=== PATIENT | female | born 1960 | race Caucasian/White ===

== ENCOUNTER 2017-08-17 11:08 | Inpatient (IN) | payer MEDICARE ==
[~2017-08-17] VITALS: Ht 157.5 cm; Wt 73.0 kg
[~2017-08-17 11:08] MED LIST: ALLO300T PO; AMLO10TA2 PO; AMLO5TAB4 PO; BUDE10.22 INH; CHOL500050 PO; CITA20TA5 PO; CLIN300C8 PO; FURO-92 PO; FURO40TA6 PO; HYDR25TA11 PO; IBUP-1223 PO; MACI10TA PO; OXYC1TAB8 PO; POTA20TA91 PO; POTA25TA4 PO; SPIR25TA PO; TADA20TA33 PO; TRAZ100T15 PO; [UNRECOGNIZED DRUG - OTHER] PO
[2017-08-17] MEDS ORDERED: SODIUM CHLORIDE FLUSH 10ML SYR IVF ONE (11:30)
[2017-08-17 11:34] LABS: BASOPHILS # (AUTO) 0.03 x10^3/uL (0-0.1); BASOPHILS % (AUTO) 0 % (0-1); EOSINOPHILS # (AUTO) 0.08 x10^3/uL (0-0.4); EOSINOPHILS % (AUTO) 1 % (1-7); LYMPHOCYTES % (AUTO) 11 % (22-44); MD NO; MEAN CORPUSCULAR HEMOGLOBIN 31.3 pg (27.0-34.8); MEAN CORPUSCULAR HGB CONC 33.7 g/dL (32.4-35.8); MEAN CORPUSCULAR VOLUME 93.1 fL (80-100); MEAN PLATELET VOLUME 7.5 fL (7.4-10.4); MONOCYTES # (AUTO) 1.07 x10^3/uL (0.2-0.8); MONOCYTES % (AUTO) 7 % (2-9); NEUTROPHILS # (AUTO) 12.08 x10^3/uL (1.8-6.8); NEUTROPHILS % (AUTO) 81 % (42-75); PLATELET COUNT 296 x10^3/uL (130-400); RED BLOOD COUNT 5.28 x10^6/uL (3.82-5.3); RED CELL DISTRIBUTION WIDTH 12.5 % (9.6-15.2)
[2017-08-17 11:45] LABS: ALANINE AMINOTRANSFERASE 18 U/L (12-78); ALBUMIN 3.6 g/dL (3.4-5.0); ANION GAP 8 mmol/L (5-15); CALCIUM 9.8 mg/dL (8.5-10.1); CHLORIDE 110 mmol/L (98-107); CREATININE 0.97 mg/dL (0.55-1.02)
[2017-08-17 11:50] LABS: ALKALINE PHOSPHATASE 112 U/L (45-117); TOTAL PROTEIN 8.5 g/dL (6.4-8.2); TROPONIN I < 0.015 ng/mL (0.000-0.045)
[2017-08-17] MEDS ORDERED: CEFTRIAXONE PMX 1GM/50ML 50 ML ONE (13:30)
[2017-08-17] MEDS ORDERED: ALBUTEROL/IPRATROPIUM 2.5MG/0.5MG, 3 ML NPPB SCH (13:30)
[2017-08-17] MEDS ORDERED: CEFTRIAXONE PMX 1GM/50ML 50 ML IVPB ONE (13:30)
[2017-08-17] MEDS ORDERED: SODIUM CHLORIDE 0.9% 1,000ML IVBOLUS ONE (13:30)
[2017-08-17] MEDS ORDERED: AZITHROMYCIN 500 MG in SODIUM CHLORIDE 0.9% 250 ML IVPB ONE (13:30)
[2017-08-17] MEDS ORDERED: TADA20TA33 PO (14:35)
[2017-08-17] MEDS ORDERED: FLUT1BLS INH (14:37)
[2017-08-17] MEDS ORDERED: MACI10TA PO (14:37)
[2017-08-17] MEDS ORDERED: SILD50TA PO (14:39)
[2017-08-17 15:23] LABS: RAPID INFLUENZA A Negative (Negative); RAPID INFLUENZA B Negative (Negative)
[2017-08-17] MEDS ORDERED: ONDANSETRON 2MG/ML, 2ML IVPush PRN (18:00)
[2017-08-17] MEDS ORDERED: ONDANSETRON ODT 4 MG PO PRN (18:00)
[2017-08-17] MEDS: ENOXAPARIN 40 MG/0.4 ML SQ SCH (18:00)
[2017-08-17] MEDS ORDERED: LABETALOL 5MG/ML, 20ML IVPush PRN (18:00)
[2017-08-17] MEDS ORDERED: POLYETHYLENE GLYCOL 17 GM PACKET PO PRN (18:00)
[2017-08-17] MEDS: SODIUM CHLORIDE 0.9% 1,000 ML IV SCH (18:35)
[2017-08-17] MEDS: CEFTRIAXONE 1,000 MG in DEXTROSE 5% 50 ML IV SCH (18:36)
[2017-08-17 20:00] VITALS: BP 99/57
[2017-08-17] MEDS ORDERED: TEMPLATE NON-FORMULARY MED. (Macitentan** (Opsumit**) 10 MG) HOMEMEDPO SCH (21:00)
[2017-08-17] MEDS ORDERED: SILDENAFIL 20 MG TABLET PO SCH (21:00)
[2017-08-17] MEDS: TRAZODONE 100MG TABLET PO SCH (23:11)
[2017-08-17] MEDS: SILDENAFIL 20 MG TABLET PO SCH (23:11)
[2017-08-17] MEDS: DOXYCYCLINE 100MG TABLET PO SCH (23:12)
[2017-08-17] MEDS: NICOTINE 14MG/24 HR PATCH.TD24 TD SCH (23:12)
[2017-08-18 02:45] VITALS: BP 96/66
[2017-08-18 05:58] LABS: CHLORIDE 115 mmol/L (98-107)
[2017-08-18 06:10] LABS: BASOPHILS # (AUTO) 0.06 x10^3/uL (0-0.1); BASOPHILS % (AUTO) 1 % (0-1); EOSINOPHILS % (AUTO) 0 % (1-7); LYMPHOCYTES % (AUTO) 11 % (22-44); MD NO; MEAN CORPUSCULAR HGB CONC 33.2 g/dL (32.4-35.8); MEAN CORPUSCULAR VOLUME 93.3 fL (80-100); MEAN PLATELET VOLUME 7.9 fL (7.4-10.4); MONOCYTES # (AUTO) 0.84 x10^3/uL (0.2-0.8); MONOCYTES % (AUTO) 8 % (2-9); NEUTROPHILS # (AUTO) 9.13 x10^3/uL (1.8-6.8); NEUTROPHILS % (AUTO) 81 % (42-75); PLATELET COUNT 255 x10^3/uL (130-400); RED BLOOD COUNT 4.66 x10^6/uL (3.82-5.3); RED CELL DISTRIBUTION WIDTH 12.6 % (9.6-15.2)
[2017-08-18 06:11] LABS: ALANINE AMINOTRANSFERASE 16 U/L (12-78); ALKALINE PHOSPHATASE 83 U/L (45-117); ANION GAP 10 mmol/L (5-15); BILIRUBIN,TOTAL 0.6 mg/dL (0.2-1.0); CALCIUM 9.7 mg/dL (8.5-10.1); CREATININE 0.72 mg/dL (0.55-1.02); TOTAL PROTEIN 7.4 g/dL (6.4-8.2)
[2017-08-18] MEDS: ALBUTEROL/IPRATROPIUM 2.5MG/0.5MG, 3 ML HHN SCH ×4 (07:00→19:25)
[2017-08-18] MEDS ORDERED: TEMPLATE NON-FORMULARY MED. (Macitentan** (Opsumit**) 10 MG) HOMEMEDPO SCH (09:00)
[2017-08-18 09:05] VITALS: BP 90/58
[2017-08-18] MEDS: SILDENAFIL 20 MG TABLET PO SCH ×3 (09:11→21:00)
[2017-08-18] MEDS: SENNA/DOCUSATE TABLET PO SCH (09:12)
[2017-08-18] MEDS: DOXYCYCLINE 100MG TABLET PO SCH ×2 (09:13→21:06)
[2017-08-18] MEDS: IBUPROFEN 200 MG TABLET PO PRN ×2 (10:11→19:11)
[2017-08-18] MEDS: GUAIFENESIN/DM 200-20MG, 10ML UDC PO PRN ×2 (10:12→18:11)
[2017-08-18] MEDS: SODIUM CHLORIDE 0.9% 1,000 ML IV SCH (11:38)
[2017-08-18] MEDS ORDERED: CEFTRIAXONE PMX 1GM/50ML 50 ML IV SCH (13:00)
[2017-08-18] MEDS: FLUTICASONE/VILANTEROL 200-25MCG/INH INH SCH (13:22)
[2017-08-18] MEDS: CEFTRIAXONE 1,000 MG in DEXTROSE 5% 50 ML IV SCH (13:34)
[2017-08-18 13:40] VITALS: BP 90/55
[2017-08-18] MEDS: ENOXAPARIN 40 MG/0.4 ML SQ SCH (16:46)
[2017-08-18 19:37] VITALS: BP 111/71
[2017-08-18] MEDS: TEMPLATE NON-FORMULARY MED. (Macitentan** (Opsumit**) 10 MG) HOMEMEDPO SCH (21:00)
[2017-08-18] MEDS: TRAZODONE 100MG TABLET PO SCH (21:06)
[2017-08-18] MEDS: NICOTINE 14MG/24 HR PATCH.TD24 TD SCH (21:06)
[2017-08-19] MEDS: SODIUM CHLORIDE 0.9% 1,000 ML IV SCH (00:16)
[2017-08-19 02:44] VITALS: BP 122/80
[2017-08-19] MEDS: IBUPROFEN 200 MG TABLET PO PRN ×2 (02:44→11:31)
[2017-08-19] MEDS: ALBUTEROL/IPRATROPIUM 2.5MG/0.5MG, 3 ML HHN SCH ×4 (08:23→20:00)
[2017-08-19 08:46] VITALS: BP 122/81
[2017-08-19] MEDS: methylPREDNISolone SOD SUCC 125 MG/2 ML IVPush SCH ×3 (08:48→20:45)
[2017-08-19] MEDS: DOXYCYCLINE 100MG TABLET PO SCH ×2 (08:48→20:42)
[2017-08-19] MEDS: FLUTICASONE/VILANTEROL 200-25MCG/INH INH SCH (08:48)
[2017-08-19] MEDS: SILDENAFIL 20 MG TABLET PO SCH ×3 (08:49→20:43)
[2017-08-19] MEDS: SENNA/DOCUSATE TABLET PO SCH (08:49)
[2017-08-19] MEDS: TEMPLATE NON-FORMULARY MED. (Macitentan** (Opsumit**) 10 MG) HOMEMEDPO SCH ×2 (08:49→09:00)
[2017-08-19 08:50] LABS: BASOPHILS # (AUTO) 0.03 x10^3/uL (0-0.1); BASOPHILS % (AUTO) 0 % (0-1); EOSINOPHILS # (AUTO) 0.01 x10^3/uL (0-0.4); EOSINOPHILS % (AUTO) 0 % (1-7); LYMPHOCYTES % (AUTO) 14 % (22-44); MD NO; MEAN CORPUSCULAR HEMOGLOBIN 31.1 pg (27.0-34.8); MEAN CORPUSCULAR HGB CONC 33.1 g/dL (32.4-35.8); MEAN CORPUSCULAR VOLUME 93.9 fL (80-100); MEAN PLATELET VOLUME 7.6 fL (7.4-10.4); MONOCYTES # (AUTO) 0.48 x10^3/uL (0.2-0.8); MONOCYTES % (AUTO) 5 % (2-9); NEUTROPHILS # (AUTO) 7.26 x10^3/uL (1.8-6.8); NEUTROPHILS % (AUTO) 80 % (42-75); PLATELET COUNT 243 x10^3/uL (130-400); RED BLOOD COUNT 4.28 x10^6/uL (3.82-5.3); RED CELL DISTRIBUTION WIDTH 12.6 % (9.6-15.2)
[2017-08-19 09:02] LABS: ALBUMIN 2.9 g/dL (3.4-5.0); ANION GAP 7 mmol/L (5-15); CALCIUM 9.7 mg/dL (8.5-10.1); CHLORIDE 118 mmol/L (98-107); CREATININE 0.83 mg/dL (0.55-1.02)
[2017-08-19] MEDS: CEFTRIAXONE 1,000 MG in DEXTROSE 5% 50 ML IV SCH (13:50)
[2017-08-19] MEDS: GUAIFENESIN/DM 200-20MG, 10ML UDC PO PRN (14:31)
[2017-08-19 15:48] VITALS: BP 125/86
[2017-08-19] MEDS: ENOXAPARIN 40 MG/0.4 ML SQ SCH (16:33)
[2017-08-19] MEDS ORDERED: BUTALB/APAP/CAFFEINE 50MG/325MG/40MG PO ONE (18:30)
[2017-08-19 20:39] VITALS: BP 119/78
[2017-08-19] MEDS: TRAZODONE 100MG TABLET PO SCH (20:42)
[2017-08-19] MEDS: NICOTINE 14MG/24 HR PATCH.TD24 TD SCH (20:42)
[2017-08-19] MEDS ORDERED: TEMPLATE NON-FORMULARY MED. (Macitentan** (Opsumit**) 10 MG) HOMEMEDPO SCH (21:00)
[2017-08-19] MEDS ORDERED: ALUMINUM/MAG/SIMETHICONE 30 ML UDC PO PRN (21:30)
[2017-08-19] MEDS ORDERED: SUMATRIPTAN 50 MG TABLET PO ONE (21:30)
[2017-08-20] MEDS: methylPREDNISolone SOD SUCC 125 MG/2 ML IVPush SCH ×4 (02:28→22:10)
[2017-08-20] MEDS: GUAIFENESIN/DM 200-20MG, 10ML UDC PO PRN ×2 (02:28→15:51)
[2017-08-20 02:50] VITALS: BP 109/70
[2017-08-20] MEDS: ALBUTEROL/IPRATROPIUM 2.5MG/0.5MG, 3 ML HHN SCH ×4 (07:00→19:20)
[2017-08-20 07:33] LABS: BASOPHILS # (AUTO) 0.01 x10^3/uL (0-0.1); BASOPHILS % (AUTO) 0 % (0-1); EOSINOPHILS % (AUTO) 0 % (1-7); LYMPHOCYTES # (AUTO) 0.52 x10^3/uL (1-3.4); LYMPHOCYTES % (AUTO) 6 % (22-44); MD NO; MEAN CORPUSCULAR HEMOGLOBIN 31.3 pg (27.0-34.8); MEAN CORPUSCULAR HGB CONC 33.1 g/dL (32.4-35.8); MEAN CORPUSCULAR VOLUME 94.6 fL (80-100); MEAN PLATELET VOLUME 7.8 fL (7.4-10.4); MONOCYTES # (AUTO) 0.08 x10^3/uL (0.2-0.8); MONOCYTES % (AUTO) 1 % (2-9); NEUTROPHILS # (AUTO) 8.58 x10^3/uL (1.8-6.8); NEUTROPHILS % (AUTO) 93 % (42-75); PLATELET COUNT 263 x10^3/uL (130-400); RED BLOOD COUNT 4.34 x10^6/uL (3.82-5.3); RED CELL DISTRIBUTION WIDTH 12.9 % (9.6-15.2)
[2017-08-20 07:46] LABS: ALBUMIN 2.9 g/dL (3.4-5.0); ANION GAP 8 mmol/L (5-15); CALCIUM 9.8 mg/dL (8.5-10.1); CHLORIDE 115 mmol/L (98-107); CREATININE 0.78 mg/dL (0.55-1.02)
[2017-08-20] MEDS: SENNA/DOCUSATE TABLET PO SCH (09:00)
[2017-08-20 09:02] VITALS: BP 109/72
[2017-08-20] MEDS: FLUTICASONE/VILANTEROL 200-25MCG/INH INH SCH (09:19)
[2017-08-20] MEDS: DOXYCYCLINE 100MG TABLET PO SCH ×2 (09:20→20:49)
[2017-08-20] MEDS: SILDENAFIL 20 MG TABLET PO SCH ×3 (09:20→20:49)
[2017-08-20 12:28] VITALS: BP 108/71
[2017-08-20] MEDS ORDERED: SUMATRIPTAN 50 MG TABLET PO ONE (13:00)
[2017-08-20] MEDS: CEFTRIAXONE 1,000 MG in DEXTROSE 5% 50 ML IV SCH (13:33)
[2017-08-20 14:53] VITALS: BP 128/76
[2017-08-20] MEDS: ENOXAPARIN 40 MG/0.4 ML SQ SCH (17:10)
[2017-08-20 18:27] VITALS: BP 111/66
[2017-08-20] MEDS: IBUPROFEN 200 MG TABLET PO PRN (18:37)
[2017-08-20] MEDS: NICOTINE 14MG/24 HR PATCH.TD24 TD SCH (20:49)
[2017-08-20] MEDS: TRAZODONE 100MG TABLET PO SCH (20:49)
[2017-08-20] MEDS ORDERED: TEMPLATE NON-FORMULARY MED. (Macitentan** (Opsumit**) 10 MG) HOMEMEDPO SCH (21:00)
[2017-08-20] MEDS ORDERED: DIPHENHYDRAMINE 50 MG/ML, 1ML IVPush ONE (21:00)
[2017-08-20] MEDS ORDERED: METOCLOPRAMIDE 5 MG/ML, 2ML IVPush ONE (21:00)
[2017-08-21 02:25] VITALS: BP 118/75
[2017-08-21] MEDS: methylPREDNISolone SOD SUCC 125 MG/2 ML IVPush SCH (04:30)
[2017-08-21] MEDS: IBUPROFEN 200 MG TABLET PO PRN (04:36)
[2017-08-21 07:18] LABS: MEAN CORPUSCULAR HEMOGLOBIN 31.2 pg (27.0-34.8); MEAN CORPUSCULAR HGB CONC 33.1 g/dL (32.4-35.8); MEAN CORPUSCULAR VOLUME 94.2 fL (80-100); MEAN PLATELET VOLUME 7.6 fL (7.4-10.4); PLATELET COUNT 279 x10^3/uL (130-400); RED CELL DISTRIBUTION WIDTH 12.5 % (9.6-15.2)
[2017-08-21 07:29] LABS: CALCIUM 10.1 mg/dL (8.5-10.1); CHLORIDE 113 mmol/L (98-107)
[2017-08-21 07:34] LABS: ALANINE AMINOTRANSFERASE 39 U/L (12-78); ALBUMIN 2.8 g/dL (3.4-5.0); ALKALINE PHOSPHATASE 74 U/L (45-117); ANION GAP 8 mmol/L (5-15); BILIRUBIN,TOTAL 0.4 mg/dL (0.2-1.0); CREATININE 0.77 mg/dL (0.55-1.02); TOTAL PROTEIN 6.6 g/dL (6.4-8.2)
[2017-08-21] MEDS: FLUTICASONE/VILANTEROL 200-25MCG/INH INH SCH (08:15)
[2017-08-21] MEDS: DOXYCYCLINE 100MG TABLET PO SCH (08:15)
[2017-08-21] MEDS: SENNA/DOCUSATE TABLET PO SCH (08:16)
[2017-08-21] MEDS: ALBUTEROL/IPRATROPIUM 2.5MG/0.5MG, 3 ML HHN SCH (08:24)
[2017-08-21 08:26] LABS: BASOPHILS % (AUTO) 0 % (0-1); EOSINOPHILS % (AUTO) 0 % (1-7); LYMPHOCYTES # (AUTO) 0.49 x10^3/uL (1-3.4); LYMPHOCYTES % (AUTO) 4 % (22-44); MD SCAN; MONOCYTES # (AUTO) 0.09 x10^3/uL (0.2-0.8); MONOCYTES % (AUTO) 1 % (2-9); NEUTROPHILS # (AUTO) 12.59 x10^3/uL (1.8-6.8); NEUTROPHILS % (AUTO) 96 % (42-75)
[2017-08-21 08:47] VITALS: BP 120/75
[2017-08-21] MEDS ORDERED: DIPHENHYDRAMINE 50 MG/ML, 1ML IVPush ONE (09:00)
[2017-08-21] MEDS ORDERED: METOCLOPRAMIDE 5 MG/ML, 2ML IVPush ONE (09:00)
[2017-08-21] MEDS: SILDENAFIL 20 MG TABLET PO SCH (10:44)
[2017-08-21] MEDS: CEFTRIAXONE 1,000 MG in DEXTROSE 5% 50 ML IV SCH (10:45)
[2017-08-21] MEDS: GUAIFENESIN/DM 200-20MG, 10ML UDC PO PRN (10:45)
[2017-08-21] MEDS ORDERED: SILD20TA PO (12:41)
[2017-08-21] MEDS ORDERED: DOXY100T PO (12:47)
[2017-08-21] MEDS ORDERED: PRED20TA PO (12:47)
[2017-08-21] MEDS ORDERED: CEFD300C37 PO (12:47)
[2017-08-21] MEDS ORDERED: ALBU8.5H8 INH (12:50)
[2017-08-21 15:25] VITALS: BP 118/74
[2017-08-22] MEDS ORDERED: ALBUTEROL/IPRATROPIUM 2.5MG/0.5MG, 3 ML HHN PRN (11:00)
== END 2017-08-21 15:58 | disposition home or self-care (01) | DRG 189 ==
LOC: ED 13:23 → EDIP 15:11 → 3NE 16:58
PROVIDERS: ADMIT Hospitalist; ATTEND Hospitalist
DX: J96.01 Acute respiratory failure with hypoxia (principal); E43 Unspecified severe protein-calorie malnutrition; I11.0 Hypertensive heart disease with heart failure; J15.9 Unspecified bacterial pneumonia; I27.29 Other secondary pulmonary hypertension; I50.9 Heart failure, unspecified; J44.1 Chronic obstructive pulmonary disease with (acute) exacerbation; J44.0 Chronic obstructive pulmonary disease with (acute) lower respiratory infection; I27.81 Cor pulmonale (chronic); Z68.29 Body mass index [BMI] 29.0-29.9, adult; F32.9 Major depressive disorder, single episode, unspecified; G43.909 Migraine, unspecified, not intractable, without status migrainosus; Z79.899 Other long term (current) drug therapy; Z82.49 Family history of ischemic heart disease and other diseases of the circulatory system; Z80.0 Family history of malignant neoplasm of digestive organs; Z87.891 Personal history of nicotine dependence
CPT/HCPCS: 36415; 70450; 71045; 80048; 80053; 82040; 83605; 83735; 83880; 84484; 85025; 87040; 87400; 93005; 93306; 94640; 99285; J0456; J0696; J7620; J1200; J2765; J2930; J7030; J7050; J7512

== ENCOUNTER → 2017-08-27 | Outpatient (CLI) | payer MEDICARE ==
[~2017-08-27] MED LIST changes: +ALBU8.5H8 INH; +CEFD300C37 PO; +DOXY100T PO; +FLUT1BLS INH; +PRED20TA PO; +SILD20TA PO; +SILD50TA PO
== END | disposition home or self-care (01) ==
LOC: CFH 15:45
PROVIDERS: ATTEND Registered Nurse
DX: J43.9 Emphysema, unspecified (principal); J18.9 Pneumonia, unspecified organism; I27.0 Primary pulmonary hypertension
CPT/HCPCS: 71250

== ENCOUNTER 2018-07-30 18:58 | Emergency (ER) | payer MEDICARE ==
[~2018-07-30] VITALS: Ht 157.5 cm; Wt 69.6 kg
[~2018-07-30 18:58] MED LIST changes: -AMLO10TA2 PO; +AMLO10TA6 PO; -CITA20TA5 PO; +CITA20TA6 PO; +TRAZ-137 PO; -TRAZ100T15 PO
[2018-07-30 19:52] LABS: BASOPHILS # (AUTO) 0.02 x10^3/uL (0-0.1); BASOPHILS % (AUTO) 0 % (0-1); EOSINOPHILS # (AUTO) 0.14 x10^3/uL (0-0.4); EOSINOPHILS % (AUTO) 3 % (1-7); LYMPHOCYTES # (AUTO) 1.38 x10^3/uL (1-3.4); LYMPHOCYTES % (AUTO) 25 % (22-44); MD NO; MEAN CORPUSCULAR HEMOGLOBIN 31.9 pg (27.0-34.8); MEAN CORPUSCULAR HGB CONC 34.3 g/dL (32.4-35.8); MEAN CORPUSCULAR VOLUME 93.2 fL (80-100); MEAN PLATELET VOLUME 7.1 fL (7.4-10.4); MONOCYTES # (AUTO) 0.58 x10^3/uL (0.2-0.8); MONOCYTES % (AUTO) 11 % (2-9); NEUTROPHILS # (AUTO) 3.41 x10^3/uL (1.8-6.8); NEUTROPHILS % (AUTO) 62 % (42-75); PLATELET COUNT 248 x10^3/uL (130-400); RED BLOOD COUNT 4.07 x10^6/uL (3.82-5.3); RED CELL DISTRIBUTION WIDTH 12.7 % (9.6-15.2)
[2018-07-30 19:57] LABS: ALANINE AMINOTRANSFERASE 20 U/L (12-78); ALBUMIN 3.4 g/dL (3.4-5.0); ANION GAP 7 mmol/L (5-15); CALCIUM 9.8 mg/dL (8.5-10.1); CHLORIDE 112 mmol/L (98-107); CREATININE 1.22 mg/dL (0.55-1.02)
[2018-07-30 20:00] LABS: ALKALINE PHOSPHATASE 82 U/L (45-117); BILIRUBIN,TOTAL 0.4 mg/dL (0.2-1.0); TOTAL PROTEIN 7.2 g/dL (6.4-8.2)
[2018-07-30] MEDS ORDERED: MORPHINE SULFATE 4 MG/ML, 1ML IVPush PRN (20:00)
[2018-07-30] MEDS ORDERED: ONDANSETRON 2MG/ML, 2ML IVPush ONE (20:00)
[2018-07-30] MEDS ORDERED: KETOROLAC 30 MG/1 ML IVPush ONE (20:30)
[2018-07-30] MEDS ORDERED: ONDANSETRON 2MG/ML, 2ML ONE (20:31)
[2018-07-30] MEDS ORDERED: KETOROLAC 30 MG/1 ML ONE (20:31)
[2018-07-30 20:46] LABS: MICROSCOPIC INDICATED
[2018-07-30 21:03] LABS: CULTURE INDICATED? NO
[2018-07-30] MEDS ORDERED: OMNIPAQUE 350 MG/ML, 100ML BOTTLE ONE (21:14)
[2018-07-30] MEDS ORDERED: OXYcodone/APAP 5/325MG TABLET PO ONE (21:30)
[2018-07-30] MEDS ORDERED: OXYcodone/APAP 5/325MG TABLET ONE (21:35)
[2018-07-30 21:49] VITALS: BP 100/42
== END 2018-07-30 21:51 | disposition home or self-care (01) ==
LOC: ED 20:34
DX: R10.31 Right lower quadrant pain (principal); R10.32 Left lower quadrant pain; I11.0 Hypertensive heart disease with heart failure; I50.9 Heart failure, unspecified; J44.9 Chronic obstructive pulmonary disease, unspecified; Z88.6 Allergy status to analgesic agent
CPT/HCPCS: 36415; 74177; 80053; 81001; 83690; 85025; 96374; 96375; 99284; J1885; J2405; Q9967

== ENCOUNTER → 2018-08-16 | Outpatient (CLI) | payer MEDICARE ==
[2018-08-16 12:33] LABS: HCT (SEDRATE) 41.1 % (34.6-47.8)
[2018-08-16 13:07] LABS: ANION GAP 4 mmol/L (5-15); CALCIUM 9.7 mg/dL (8.5-10.1); CHLORIDE 112 mmol/L (98-107)
== END | disposition home or self-care (01) ==
LOC: CFH 10:27
PROVIDERS: ATTEND Internal Medicine Cardiovascular Disease
DX: I27.0 Primary pulmonary hypertension (principal)
CPT/HCPCS: 36415; 80048; 82784; 83516; 83880; 85651; 86140; 86255

== ENCOUNTER → 2018-10-02 | Outpatient (CLI) | payer MEDICARE ==
[~2018-10-02] MED LIST changes: -AMLO10TA6 PO; +AMLO10TA8 PO
== END | disposition home or self-care (01) ==
LOC: CFH 12:50
PROVIDERS: ATTEND Internal Medicine Cardiovascular Disease
DX: I35.8 Other nonrheumatic aortic valve disorders (principal); I37.1 Nonrheumatic pulmonary valve insufficiency; R06.02 Shortness of breath
CPT/HCPCS: 93306

== ENCOUNTER 2020-01-02 17:13 | Inpatient (IN) | payer MEDICARE ==
[~2020-01-02] VITALS: Ht 157.5 cm; Wt 74.5 kg
[~2020-01-02 17:13] MED LIST changes: +HYDR-826 PO; -HYDR25TA11 PO; -TRAZ-137 PO; +TRAZ-175 PO
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
[2020-01-02 18:28] LABS: BASOPHILS # (AUTO) 0.02 x10^3/uL (0-0.1); BASOPHILS % (AUTO) 1 % (0-1); EOSINOPHILS # (AUTO) 0.15 x10^3/uL (0-0.4); EOSINOPHILS % (AUTO) 3 % (1-7); LYMPHOCYTES # (AUTO) 1.05 x10^3/uL (1-3.4); LYMPHOCYTES % (AUTO) 23 % (22-44); MD NO; MEAN CORPUSCULAR HEMOGLOBIN 32.6 pg (27.0-34.8); MEAN CORPUSCULAR HGB CONC 33.9 g/dL (32.4-35.8); MEAN CORPUSCULAR VOLUME 96.2 fL (80-100); MONOCYTES # (AUTO) 0.44 x10^3/uL (0.2-0.8); MONOCYTES % (AUTO) 10 % (2-9); NEUTROPHILS # (AUTO) 2.97 x10^3/uL (1.8-6.8); NEUTROPHILS % (AUTO) 64 % (42-75); PLATELET COUNT 219 x10^3/uL (130-400); RED BLOOD COUNT 4.05 x10^6/uL (3.82-5.3); RED CELL DISTRIBUTION WIDTH 12.8 % (9.6-15.2)
[2020-01-02 18:36] LABS: ALBUMIN 3.4 g/dL (3.4-5.0); ANION GAP 8 mmol/L (5-15); CALCIUM 9.3 mg/dL (8.5-10.1); CHLORIDE 115 mmol/L (98-107); CREATININE 1.03 mg/dL (0.55-1.02)
[2020-01-02 18:40] LABS: TROPONIN I < 0.015 ng/mL (0.000-0.045)
--- NOTE | 2020-01-02 19:26 | NUR ---
AMBULATED PT. PT AMBULATES WITH STEADY GAIT AND WITHOUT ASSISTANCE.
[2020-01-02] MEDS ORDERED: ASPIRIN 325 MG TABLET ONE (19:50)
[2020-01-02] MEDS ORDERED: ASPIRIN 325 MG TABLET PO ONE (20:00)
[2020-01-02] MEDS ORDERED: LETAIRIS (20:35)
[2020-01-02] MEDS ORDERED: TADALAFIL (20:35)
[2020-01-02] MEDS ORDERED: CITALOPRAM (20:35)
[2020-01-02 20:49] VITALS: BP 134/87
[2020-01-02] MEDS ORDERED: morphine SULFATE 10 MG/ML, 1ML IV PRN (23:00)
[2020-01-02] MEDS ORDERED: ONDANSETRON 2MG/ML, 2ML IVPush PRN (23:00)
[2020-01-02] MEDS ORDERED: ACETAMINOPHEN 325 MG TABLET PO PRN (23:00)
[2020-01-02] MEDS ORDERED: TRAZODONE 100MG TABLET PO SCH (23:00)
[2020-01-03] MEDS: NICOTINE 14MG/24 HR PATCH.TD24 TD SCH ×2 (00:08→22:02)
[2020-01-03] MEDS: TRAZODONE 100MG TABLET PO SCH ×2 (00:08→22:02)
[2020-01-03 00:17] VITALS: BP 117/74
[2020-01-03 00:33] LABS: TROPONIN I < 0.015 ng/mL (0.000-0.045)
[2020-01-03] MEDS: ALBUTEROL SULFATE 2.5 MG/3 ML NPPB SCH ×4 (03:00→19:43)
[2020-01-03 06:01] LABS: BASOPHILS # (AUTO) 0.02 x10^3/uL (0-0.1); BASOPHILS % (AUTO) 1 % (0-1); EOSINOPHILS # (AUTO) 0.15 x10^3/uL (0-0.4); EOSINOPHILS % (AUTO) 4 % (1-7); LYMPHOCYTES # (AUTO) 1.21 x10^3/uL (1-3.4); LYMPHOCYTES % (AUTO) 29 % (22-44); MD NO; MEAN CORPUSCULAR HEMOGLOBIN 32.2 pg (27.0-34.8); MEAN CORPUSCULAR HGB CONC 33.1 g/dL (32.4-35.8); MEAN CORPUSCULAR VOLUME 97.2 fL (80-100); MEAN PLATELET VOLUME 7.3 fL (7.4-10.4); MONOCYTES # (AUTO) 0.45 x10^3/uL (0.2-0.8); MONOCYTES % (AUTO) 11 % (2-9); NEUTROPHILS # (AUTO) 2.39 x10^3/uL (1.8-6.8); NEUTROPHILS % (AUTO) 57 % (42-75); PLATELET COUNT 210 x10^3/uL (130-400); RED BLOOD COUNT 4.26 x10^6/uL (3.82-5.3); RED CELL DISTRIBUTION WIDTH 12.6 % (9.6-15.2)
[2020-01-03 06:08] LABS: ANION GAP 6 mmol/L (5-15); CALCIUM 9.5 mg/dL (8.5-10.1); CHLORIDE 115 mmol/L (98-107); CHOLESTEROL, TOTAL 193 mg/dL (140-239); CREATININE 0.93 mg/dL (0.55-1.02); TRIGLYCERIDES 335 mg/dL (50-200); VLDL CHOLESTEROL 67 mg/dL (0-25)
[2020-01-03 06:12] LABS: CHOL/HDL RATIO 4.7; HDL CHOL % 21 % (28-40); HDL CHOLESTEROL (DIRECT) 41 mg/dL (40-60); LDL CHOLESTEROL,CALCULATED 85 mg/dL (54-169); LDL/HDL RATIO 2.1 (0.5-3.0); TROPONIN I < 0.015 ng/mL (0.000-0.045)
[2020-01-03] MEDS: BUDESONIDE 0.5 MG/2 ML INHA NPPB SCH ×2 (08:43→19:43)
[2020-01-03] MEDS ORDERED: SPIRONOLACTONE 25 MG TABLET PO SCH (09:00)
[2020-01-03] MEDS: FUROSEMIDE 40 MG TABLET PO SCH ×2 (09:00→22:01)
[2020-01-03 09:06] VITALS: BP 119/74
[2020-01-03] MEDS ORDERED: CITA20TA6 PO (14:45)
[2020-01-03] MEDS ORDERED: TADA20TA43 PO (14:45)
[2020-01-03] MEDS ORDERED: AMBR10TA3 PO (14:45)
[2020-01-03] MEDS ORDERED: OMEP-110 PO (14:45)
[2020-01-03 16:58] VITALS: BP 126/78
[2020-01-03] MEDS: AMBRISENTAN 10 MG HOMEMEDPO SCH (18:07)
[2020-01-03] MEDS: ENOXAPARIN 40 MG/0.4 ML SQ SCH (18:08)
[2020-01-03] MEDS: CITALOPRAM 20 MG TABLET PO SCH (18:08)
[2020-01-03] MEDS: OMEPRAZOLE 20 MG CAPSULE.DR PO SCH (18:08)
[2020-01-03 18:36] VITALS: BP 118/76
[2020-01-04 00:10] VITALS: BP 129/68
[2020-01-04] MEDS: ALBUTEROL SULFATE 2.5 MG/3 ML NPPB SCH ×3 (02:15→14:30)
[2020-01-04] MEDS: OMEPRAZOLE 20 MG CAPSULE.DR PO SCH (05:59)
[2020-01-04 06:49] VITALS: BP 95/57
[2020-01-04] MEDS: BUDESONIDE 0.5 MG/2 ML INHA NPPB SCH (07:40)
[2020-01-04] MEDS ORDERED: REGADENOSON 0.4 MG/5 ML SYRINGE ONE (08:05)
[2020-01-04] MEDS: CITALOPRAM 20 MG TABLET PO SCH (08:12)
[2020-01-04] MEDS: FUROSEMIDE 40 MG TABLET PO SCH (08:12)
[2020-01-04] MEDS: AMBRISENTAN 10 MG HOMEMEDPO SCH (08:12)
[2020-01-04] MEDS ORDERED: SPIRONOLACTONE 50 MG TABLET PO SCH (09:00)
[2020-01-04 12:15] VITALS: BP 106/63
[2020-01-04] MEDS ORDERED: GEMF600T8 PO (15:11)
[2020-01-04] MEDS: ENOXAPARIN 40 MG/0.4 ML SQ SCH (15:31)
[2020-01-04] MEDS ORDERED: GEMFIBROZIL 600 MG TABLET PO SCH (21:00)
== END 2020-01-04 16:45 | disposition home or self-care (01) | DRG 189 ==
LOC: ED 19:40 → EDIP 19:44 → ED 20:04 → 5SO 20:35 → DCLOUNGE 01-04 16:38
PROVIDERS: ADMIT Family Medicine; ATTEND Family Medicine
DX: J96.21 Acute and chronic respiratory failure with hypoxia (principal); I50.32 Chronic diastolic (congestive) heart failure; J44.1 Chronic obstructive pulmonary disease with (acute) exacerbation; E78.1 Pure hyperglyceridemia; F17.210 Nicotine dependence, cigarettes, uncomplicated; G47.33 Obstructive sleep apnea (adult) (pediatric); F51.04 Psychophysiologic insomnia; I11.0 Hypertensive heart disease with heart failure; K21.9 Gastro-esophageal reflux disease without esophagitis; I27.29 Other secondary pulmonary hypertension; R32 Unspecified urinary incontinence; Z80.1 Family history of malignant neoplasm of trachea, bronchus and lung; Z83.3 Family history of diabetes mellitus; Z91.14 Patient's other noncompliance with medication regimen; Z91.19 Patient's noncompliance with other medical treatment and regimen; Z99.81 Dependence on supplemental oxygen; Z88.5 Allergy status to narcotic agent; Z88.6 Allergy status to analgesic agent; Z79.899 Other long term (current) drug therapy
CPT/HCPCS: 36415; 71045; 78452; 80048; 80061; 82040; 83880; 84443; 84484; 85025; 85379; 93005; 93017; 93306; 93880; 94640; 96372; 99285; G0378; J1650; J2785; J7613; J7626; A9502; J7512

== ENCOUNTER → 2021-02-22 | Outpatient (CLI) | payer MEDICARE ==
[~2021-02-22] MED LIST changes: +AMBR10TA3 PO; +AMLO-211 PO; -AMLO10TA8 PO; +CITALOPRAM; -CLIN300C8 PO; +CLIN300C9 PO; +GEMF-31 PO; +LETAIRIS; +OMEP-110 PO; +TADA20TA43 PO; +TADALAFIL
[2021-02-22 11:22] LABS: BASOPHILS % (AUTO) 1 % (0-1); EOSINOPHILS % (AUTO) 2 % (1-7); LYMPHOCYTES % (AUTO) 24 % (22-44); MEAN CORPUSCULAR HEMOGLOBIN 33.3 pg (27.0-34.8); MEAN CORPUSCULAR HGB CONC 33.9 g/dL (32.4-35.8); MONOCYTES % (AUTO) 8 % (2-9); NEUTROPHILS % (AUTO) 66 % (42-75); PLATELET COUNT 199 x10^3/uL (130-400); RED BLOOD COUNT 4.66 x10^6/uL (3.82-5.3); RED CELL DISTRIBUTION WIDTH 12.7 % (9.6-15.2)
[2021-02-22 11:34] LABS: CALCIUM 9.9 mg/dL (8.5-10.1); CREATININE 0.77 mg/dL (0.55-1.02)
[2021-02-22 11:37] LABS: INTERNATIONAL NORMALIZED RATIO 1.06 (0.93-1.1); PROTHROMBIN TIME 11.3 Seconds (9.6-11.5)
[2021-02-22 11:53] LABS: ANION GAP 3 mmol/L (5-15); CHLORIDE 110 mmol/L (98-107)
== END | disposition home or self-care (01) ==
LOC: LAB 10:45
PROVIDERS: ATTEND Internal Medicine
DX: G47.33 Obstructive sleep apnea (adult) (pediatric) (principal); G47.30 Sleep apnea, unspecified; I50.32 Chronic diastolic (congestive) heart failure; I36.1 Nonrheumatic tricuspid (valve) insufficiency; I27.29 Other secondary pulmonary hypertension; J44.1 Chronic obstructive pulmonary disease with (acute) exacerbation; J44.9 Chronic obstructive pulmonary disease, unspecified; I11.0 Hypertensive heart disease with heart failure; I27.20 Pulmonary hypertension, unspecified
CPT/HCPCS: 36415; 80048; 83880; 85025; 85610

== ENCOUNTER 2021-03-17 09:46 | Day surgery (SDC) | payer MEDICARE ==
[~2021-03-17] VITALS: Ht 157.5 cm; Wt 70.5 kg
[2021-03-17] MEDS ORDERED: DIPHENHYDRAMINE 50 MG/ML, 1ML ONE (09:57)
[2021-03-17] MEDS ORDERED: TRAZ-175 PO (10:26)
[2021-03-17] MEDS ORDERED: COLE1TAB2 PO (10:26)
[2021-03-17] MEDS ORDERED: DIPHENHYDRAMINE 50 MG/ML, 1ML IVPush ONE (10:30)
[2021-03-17] MEDS ORDERED: SODIUM CHLORIDE 0.9% 1,000 ML IV SCH (10:30)
[2021-03-17 10:58] LABS: BASOPHILS % (AUTO) 1 % (0-1); EOSINOPHILS % (AUTO) 2 % (1-7); LYMPHOCYTES % (AUTO) 19 % (22-44); MEAN CORPUSCULAR HGB CONC 34.7 g/dL (32.4-35.8); MEAN PLATELET VOLUME 7.1 fL (7.4-10.4); MONOCYTES % (AUTO) 9 % (2-9); NEUTROPHILS % (AUTO) 69 % (42-75); PLATELET COUNT 206 x10^3/uL (130-400); RED BLOOD COUNT 4.53 x10^6/uL (3.82-5.3); RED CELL DISTRIBUTION WIDTH 12.7 % (9.6-15.2)
[2021-03-17 11:03] LABS: ANION GAP 6 mmol/L (5-15); CALCIUM 9.9 mg/dL (8.5-10.1); CHLORIDE 113 mmol/L (98-107); CREATININE 0.82 mg/dL (0.55-1.02)
[2021-03-17] MEDS ORDERED: LIDOCAINE 2%, 20ML ONE (11:40)
[2021-03-17] MEDS ORDERED: FENTANYL PF 100 MCG/2ML ONE (11:40)
[2021-03-17] MEDS ORDERED: MIDAZOLAM 1 MG/ML, 2ML ONE (11:40)
== END 2021-03-17 14:34 | disposition home or self-care (01) ==
LOC: CACL 09:46
PROVIDERS: ATTEND Internal Medicine Cardiovascular Disease
DX: I27.20 Pulmonary hypertension, unspecified (principal); G47.30 Sleep apnea, unspecified; F17.210 Nicotine dependence, cigarettes, uncomplicated; Z79.899 Other long term (current) drug therapy; Z88.5 Allergy status to narcotic agent
CPT/HCPCS: 36415; 80048; 85025; 93451; 99156; C1769; C1894; J1200; J2250; J3010

== ENCOUNTER 2021-04-25 10:29 | Outpatient (CLI) | payer MEDICARE ==
[~2021-04-25 10:29] MED LIST changes: +COLE1TAB2 PO
== END 2021-04-25 23:59 | disposition home or self-care (01) ==
LOC: CVU 10:29 → EDSTATUS 11:00 → CVU 23:59
PROVIDERS: ATTEND Internal Medicine Cardiovascular Disease
DX: I37.1 Nonrheumatic pulmonary valve insufficiency (principal); R06.02 Shortness of breath; I27.0 Primary pulmonary hypertension
CPT/HCPCS: 93306